=== PATIENT | male | born 1985 | race Caucasian/White ===

== ENCOUNTER 2022-05-13 11:15 | Outpatient (CLI) | payer MEDICAID, SELFPAY ==
[2022-05-13 22:02] LABS: Chloride* 106 mmol/L (96-114)
[2022-05-13 22:03] LABS: Potassium* 4.5 mmol/L (3.6-5.1); Sodium* 139 mmol/L (135-149)
[2022-05-13 22:05] LABS: Estimated Glomerular Filt Rate 98 ml/min
[2022-05-13 22:06] LABS: Blood Urea Nitrogen* 11 mg/dL (5-24); Calcium* 9.6 mg/dL (8.4-10.6); Carbon Dioxide* 30 mmol/L (20-32); Glucose* 86 mg/dL (60-115)
== END 2022-05-13 11:16 | disposition home or self-care (01) ==
LOC: LKVREF 11:16
PROVIDERS: PCP Physician Assistant Medical; Visit Provider Physician Assistant Medical
DX: Z01.818 Encounter for other preprocedural examination (principal)
CPT/HCPCS: 80048